=== PATIENT | female | born 1940 | race Caucasian/White ===

== ENCOUNTER 2019-11-22 07:05 | Day surgery (SDC) | payer MEDICARE, OTHER ==
[~2019-11-22 07:05] MED LIST: Lactated Ringers 1,000 ML IV SCH; Lidocaine 1%/Sod Bicarbonate in NS 8.4% 1 ML Syringe IDERM PRN; Sodium Chloride 0.9% 10 ML Syringe FLUSH PRN
[2019-11-22] MEDS ORDERED: Lidocaine 1% 4 ML ONE (07:10)
[2019-11-22] MEDS ORDERED: Propofol 200 MG/20 ML SDV ONE ×4 (07:10→09:06)
--- NOTE | 2019-11-22 07:32 | PCM.PREANE ---
Preanesthetic Assessment - Anesthesia/Transfusion/Family Hx Anesthesia History: Prior Anesthesia Reaction Type of Anesthesia Reaction: Excessive Nausea/Vomiting Family History of Anesthesia Reaction: No Transfusion History: Prior Transfusion Without Reaction - Review of Systems General: No Symptoms Pulmonary: No Symptoms Cardiovascular: No Symptoms Gastrointestinal: Abdominal Pain Neurological: No Symptoms Other: Reports: None - Physical Assessment NPO Status Date: 11/12/19 NPO Status Time: 02:00 ASA Class: 2 Mental Status: Alert & Oriented x3 Airway Class: Mallampati = 1 Dentition: Reports: Normal Dentition Thyro-Mental Finger Breadths: 3 Mouth Opening Finger Breadths: 3 ROM/Head Extension: Full Lungs: Clear to Auscultation, Normal Respiratory Effort Cardiovascular: Regular Rate, Regular Rhythm - Allergies Allergies/Adverse Reactions: Allergies Allergy/AdvReac Type Severity Reaction Status Date / Time aspirin Allergy Cannot Verified 11/21/19 11:04 Remember atorvastatin calcium Allergy Cannot Verified 11/21/19 11:04 [From Lipitor] Remember ibuprofen [From Motrin] Allergy Cannot Verified 11/21/19 11:04 Remember Iodinated Contrast Media Allergy Anaphylactic Verified 11/21/19 11:04 [Iodinated Contrast Media - Shock IV Dye] latex Allergy Cannot Verified 11/21/19 11:04 Remember perfume Allergy Cannot Verified 11/21/19 11:04 Remember rosuvastatin calcium Allergy Cannot Verified 11/21/19 11:04 [From Crestor] Remember soap Allergy Cannot Verified 11/21/19 11:04 Remember wheat dextrin Allergy Cannot Verified 11/21/19 11:04 Remember - Anesthesia Plan Beta Dameon: Propranolol Med Last Dose Date: 11/22/19 - Acknowledgements Anesthesia Type Planned: MAC Pt an Appropriate Candidate for the Planned Anesthesia: Yes Alternatives and Risks of Anesthesia Discussed w Pt/Guardian: Yes Pt/Guardian Understands and Agrees with Anesthesia Plan: Yes PreAnesthesia Questionnaire HEENT History: Reports: Macular Degeneration Cardiovascular History: Reports: High Cholesterol, Hypertension, Other (See Below) Other Cardiovascular History: palpitaitons, angina, agaston coronary artery calcium score less than 100 Respiratory History: Reports: Other (See Below) Other Respiratory History: lung nodule Gastrointestinal History: Reports: Colon Polyp, GERD, Other (See Below) Other Gastrointestinal History: hemorrhoids, barretts esophagus, anal pain Genitourinary History: Reports: Other (See Below) Other Genitourinary History: hematuria FLAME HARDENER History: Reports: Other (See Below) Other OB/BYN History: ovarian cyst Neurological History: Reports: None Psychiatric History: Reports: Anxiety, Depression Endocrine/Metabolic History: Reports: Hypothyroidism Hematologic History: Reports: None Immunologic History: Reports: None Oncologic (Cancer) History: Reports: None Dermatologic History: Reports: Eczema - Past Surgical History Head Surgeries/Procedures: Reports: None HEENT Surgical History: Reports: Cataract Surgery Cardiovascular Surgical History: Reports: None Respiratory Surgical History: Reports: None GI Surgical History: Reports: Cholecystectomy, Colonoscopy, EGD, Other (See Below) Other GI Surgeries/Procedures: hemorrhoid banding and hemorrhoidectomy, laparoscopy Female Surgical History: Reports: Breast Reconstruction, Section, Cystoscopy, Hysterectomy Male Surgical History: Reports: None Endocrine Surgical History: Reports: None Musculoskeletal Surgical History: Reports: Other (See Below) Other Musculoskeletal Surgeries/Procedures:: hand surgeries Oncologic Surgical History: Reports: None Dermatological Surgical History: Reports: None - SUBSTANCE USE Smoking Status *Q: Former Smoker Recreational Drug Use History: No - HOME MEDS Home Medications: Home Meds Cetirizine [ZyrTEC] 10 mg PO BID 11/21/19 [History] Dicyclomine [Bentyl] 10 mg PO BID 11/21/19 [History] Doxazosin [Cardura] 1 mg PO BEDTIME 11/21/19 [History] Esomeprazole Magnesium [Nexium] 40 mg PO BID 11/21/19 [History] Ezetimibe [Zetia] 10 mg PO DAILY 11/21/19 [History] Fluticasone Propionate [Flonase] 1 dose NASBOTH DAILY PRN 11/21/19 [History] Levothyroxine 112 mcg PO MOFR 11/21/19 [History] Levothyroxine [Synthroid] 100 mcg PO SUTUWETHSA 11/21/19 [History] Losartan Potassium 25 mg PO DAILY 11/21/19 [History] Naproxen Sodium [Aleve] 220 mg PO BID PRN 11/21/19 [History] Potassium Chloride [Klor-Con 10] 10 meq PO DAILY 11/21/19 [History] Propranolol [Inderal LA] 80 mg PO DAILY 11/21/19 [History] Simvastatin 60 mg PO DAILY 11/21/19 [History] Triamcinolone Acetonide [Kenalog 0.1% Crm] 1 dose TOP BID 11/21/19 [History] Ubidecarenone [Coq-10] 100 mg PO DAILY 11/21/19 [History] Wheat Dextrin [Benefiber] 2 each PO DAILY 11/21/19 [History] hydroCHLOROthiazide [Hydrochlorothiazide] 12.5 mg PO DAILY 11/21/19 [History] ondansetron HCL [Ondansetron HCl] 4 mg PO Q4H PRN 11/21/19 [History] - CURRENT (IN HOUSE) MEDS Current Meds: Current Medications Lactated Ringer's (Ringers, Lactated) 1,000 mls @ 125 mls/hr IV ASDIRECTED LIVE Lidocaine/Sodium Bicarbonate (Buffered Lidocaine 1% In Ns 8.4%) 0.25 ml IDERM ONETIME PRN PRN Reason: Prior to IV Start Sodium Chloride (Saline Flush) 10 ml FLUSH ASDIRECTED PRN PRN Reason: Keep Vein Open Discontinued Medications Lidocaine HCl (Xylocaine-Mpf 1%) Confirm Administered Dose 4 mls @ as directed .ROUTE .STK-MED ONE Stop: 11/22/19 07:11 Propofol (Diprivan 20 Ml) Confirm Administered Dose 200 mg .ROUTE .STK-MED ONE Stop: 11/22/19 07:11
[2019-11-22] MEDS ORDERED: Ondansetron 4 MG/2 ML SDV ONE (08:18)
--- NOTE | 2019-11-22 09:31 | PCM48HPAN ---
Post Anesthesia Note - EVALUATION WITHIN 48HRS OF ANESTHETIC Vital Signs in Normal Range: Yes Patient Participated in Evaluation: Yes Respiratory Function Stable: Yes Airway Patent: Yes Cardiovascular Function Stable: Yes Hydration Status Stable: Yes Pain Control Satisfactory: Yes Nausea and Vomiting Control Satisfactory: Yes Mental Status Recovered: Yes Vital Signs: Last Vital Signs Temp 37.2 C 11/22/19 07:25 Pulse 71 11/22/19 07:25 Resp 16 11/22/19 07:25 BP 128/88 11/22/19 07:25 Pulse Ox 93 L 11/22/19 07:25
--- NOTE | 2019-11-22 10:52 | OR ---
DATE OF OPERATION: 11/22/2019 SURGEON: Héctor Morgan MD PREOPERATIVE DIAGNOSIS: Change in bowel caliber, hematochezia, and dysphagia. POSTOPERATIVE DIAGNOSIS: 1. Gastritis, diffuse. 2. Colonic polyps. 3. Possible diverticulitis. 4. Hemorrhoids. 5. Mild distal esophageal stricture OPERATION PERFORMED: 1. Esophagogastroduodenoscopy with biopsies and esophageal dilation. 2. Colonoscopy with polypectomy. 3. Hemorrhoid banding. ESTIMATED BLOOD LOSS: Minimal. COMPLICATIONS: None immediate. FINDINGS: See post op diagnosis above. INDICATION AND CONSENT: The patient is a 79-year-old female who has been having left-sided abdominal pain for about a year. This is associated with hematochezia sometimes with pain, sometimes without pain. The patient also has symptoms of food getting stuck, especially medications in her esophagus. The patient presented to my clinic with all these symptoms. Given the chronic nature of her abdominal pain as well as justin hematochezia, I recommend to proceed with colonoscopy and EGD with possible dilation of the esophagus as well as possible hemorrhoid banding. The patient had prior hemorrhoid banding, last hemorrhoids were banded in 2015. After discussing with the patient, the patient agreed to proceed with the procedure. All risks, benefits, and alternatives were discussed. Questions were answered and informed consent was obtained. DESCRIPTION OF PROCEDURE: The patient was taken to the procedure room, placed in left lateral decubitus position. Then, monitored anesthesia care was induced. Then, we began our exam with upper endoscopy. The scope was inserted into the mouth and into the throat and taken all the way down to the second portion of duodenum. Duodenum was normal. In the stomach, there was diffuse gastritis from the antrum upwards into the body of the stomach. We took biopsies with cold forceps for histology as well as H. pylori analysis from the antrum. Upon withdrawing the scope, retroflexed views revealed no hiatal hernia. There was a mild stricture at the distal esophagus. The mucosa at this stricture site which was at the GE junction at 35 mm appeared normal. There was no external compression or submucosal mass. The stricture appeared to be benign and pneumatic balloon dilation was performed to 15 mm. Once this was done, the stricture site was also biopsied and labelled GE junction for analysis. Once this was done, the stomach was suctioned out of air and the scope was withdrawn. The rest of the esophagus was normal. Next, we proceeded with colonoscopy. We started with a perianal exam. There was mild irritation at the anal opening. Sphincter tone was normal. Upon digital rectal exam, there were some hemorrhoid occlusions that could be felt as grade 2 or 3 hemorrhoids. The scope was then inserted into the anus and taken all the way to the cecum. The ileocecal valve and appendiceal orifice were photographed. Then, the scope was withdrawn slowly. There were three, small (3 mm) polyps in the ascending colon, all of which were removed with cold forceps and sent for pathologic analysis. Upon withdrawal of the scope, the transverse colon was normal, descending colon was normal. In the sigmoid colon, there were multiple scattered medium and large sized diverticulosis. There was 1 lesion in the mid sigmoid colon that appeared raised and with a central hole that was indurated and oozed whitish substance that resembled pus. The mucosa overlying this lesion appeared normal, however, the region was indurated. Mucosal biopsies were performed and this lesion was tattooed for future identification. I suspect this is an area of chronic diverticulitis. No other area of diverticulitis was seen and the mucosa of the sigmoid colon was otherwise normal. The scope was withdrawn to the rectum and rectum appeared normal. On retroflexion, there were irritated hemorrhoids in all 3 columns which appeared irritated but non-bleeding. Therefore, a decision was made to proceed with hemorrhoid banding. Prior to that, the colon was suctioned out of air and then we proceeded with hemorrhoid banding. The 3- slit anoscope was placed. The hemorrhoids that were irritated were visualized and 3 bands were placed in 3 different hemorrhoid columns. A slow ooze was noticed at the end. Then, this marked the end of the procedure. At the end of the procedure. The patient was awoken from monitored anesthesia and taken to the PACU for recovery. I will prescribe the patient antibiotics for 10 days for possible diverticulitis and have the patient get a followup scope in 1 year to re-examine the area of the lesion and make sure there are no other lesions that are suspicious. The patient to also follow up in clinic in 2 weeks for postop check. ANESTHESIA: MMODAL /[id number] ROSELINE
== END 2019-11-22 10:45 | disposition home or self-care (01) ==
LOC: JD.SDS 07:05
PROVIDERS: ATTEND Surgery
DX: D12.2 Benign neoplasm of ascending colon (principal); K21.0 Gastro-esophageal reflux disease with esophagitis; K52.9 Noninfective gastroenteritis and colitis, unspecified; K22.2 Esophageal obstruction; K64.2 Third degree hemorrhoids; K29.71 Gastritis, unspecified, with bleeding; K57.31 Diverticulosis of large intestine without perforation or abscess with bleeding; M19.90 Unspecified osteoarthritis, unspecified site; E78.5 Hyperlipidemia, unspecified; I10 Essential (primary) hypertension; E03.9 Hypothyroidism, unspecified; Z79.899 Other long term (current) drug therapy; Z91.041 Radiographic dye allergy status; Z88.6 Allergy status to analgesic agent; Z88.8 Allergy status to other drugs, medicaments and biological substances; Z91.040 Latex allergy status; Z91.048 Other nonmedicinal substance allergy status; Z91.018 Allergy to other foods; Z87.891 Personal history of nicotine dependence
CPT/HCPCS: 43239; 43249; 45380; 45398; J2001; J2405; J2704; J7120; 00902

== ENCOUNTER 2023-05-12 08:36 | Day surgery (SDC) | payer MEDICARE, OTHER ==
[~2023-05-12 08:36] MED LIST changes: -Lidocaine 1%/Sod Bicarbonate in NS 8.4% 1 ML Syringe IDERM PRN; +Morphine 8 MG, EPINEPHrine 0.3 MG, Cefuroxime 750 MG, Ketorolac 30 MG, Sodium Chloride ... PRN
[2023-05-12] MEDS ORDERED: Vancomycin 1 GM SDV ONE (08:37)
[2023-05-12] MEDS ORDERED: Tranexamic Acid 1,000 MG/10 ML Vial ONE (08:37)
[2023-05-12] MEDS ORDERED: Ondansetron 4 MG/2 ML SDV IVPUSH PRN (09:19)
[2023-05-12] MEDS ORDERED: fentaNYL 100 MCG/2 ML SDV IVPUSH PRN (09:19)
[2023-05-12] MEDS ORDERED: HYDROmorphone 0.5 MG/0.5 ML Syringe IVPUSH PRN (09:19)
[2023-05-12] MEDS ORDERED: Midazolam 1 MG/ML 2 ML SDV ONE (09:26)
[2023-05-12] MEDS ORDERED: Propofol 200 MG/20 ML SDV ONE (09:27)
[2023-05-12] MEDS ORDERED: ceFAZolin 2 GM Vial ONE (09:27)
[2023-05-12] MEDS ORDERED: fentaNYL 100 MCG/2 ML SDV ONE (09:27)
[2023-05-12] MEDS ORDERED: Lidocaine 1% 2 ML ONE (09:27)
[2023-05-12] MEDS ORDERED: Phenylephrine 1% 10 MG/ML SDV ONE (10:30)
[2023-05-12] MEDS ORDERED: ePHEDrine 50 MG/ML SDV ONE (10:50)
[2023-05-12] MEDS ORDERED: Ondansetron 4 MG/2 ML SDV ONE (12:12)
[2023-05-12] MEDS ORDERED: hydrALAZINE 20 MG/ML SDV ONE (13:18)
[2023-05-12] MEDS ORDERED: Acetaminophen/HYDROcodone 325-5 MG Tab PO ONE (13:35)
== END 2023-05-12 16:47 | disposition home or self-care (01) ==
LOC: JD.SDS 08:36
PROVIDERS: ATTEND Orthopaedic Surgery
DX: M16.11 Unilateral primary osteoarthritis, right hip (principal); I12.9 Hypertensive chronic kidney disease with stage 1 through stage 4 chronic kidney disease, or unspecified chronic kidney disease; N18.2 Chronic kidney disease, stage 2 (mild); E78.00 Pure hypercholesterolemia, unspecified; E03.9 Hypothyroidism, unspecified; F41.9 Anxiety disorder, unspecified; Z88.8 Allergy status to other drugs, medicaments and biological substances; Z91.040 Latex allergy status; Z91.041 Radiographic dye allergy status; Z88.6 Allergy status to analgesic agent; Z91.048 Other nonmedicinal substance allergy status; Z91.018 Allergy to other foods; Z79.899 Other long term (current) drug therapy; Z79.890 Hormone replacement therapy; Z87.891 Personal history of nicotine dependence
CPT/HCPCS: 0055T; 27130; 36415; 73501; 86850; 86900; 86901; 97110; 97116; 97161; A9270; C1713; C1776; J0171; J0360; J0690; J0697; J1885; J2250; J2270; J2370; J2405; J2704; J3010; J3370; J7120; 01214; 99100; J3490